=== PATIENT | male | born 1960 | race Hispanic/Latino ===

== ENCOUNTER 2016-10-17 10:35 | Outpatient (CLI) | payer MEDICARE ==
[2016-10-17 11:00] LABS: #Basophils 0.1 thou/uL (0.0-0.2); #Eosinphils 0.1 thou/uL (0.0-0.7); #Lymphocytes 1.3 thou/uL (1.20-3.40); #Monocytes 0.5 thou/uL (0.11-0.59); #Neutrophils 5.4 thou/uL (1.40-6.50); %Basophils 0.7 % (0.0-1.0); %Eosinophils 1.3 % (0.0-10.0); %Monocytes 7.3 % (0.0-10.0); Hematocrit 40.7 % (42.0-52.0); Mean Platelet Volume 6.1 fL (7.4-10.4); White Blood Cell (WBC) Count 7.4 thou/uL (4.8-10.8)
[2016-10-17 12:14] LABS: ALT (SGPT) 44 U/L (0-55); AST (SGOT) 25 U/L (5-34); Alkaline Phosphatase 126 U/L (40-150); Anion Gap 14 mmol/L (10-20); BUN (Urea Nitrogen) 8 mg/dL (8.4-25.7); Bilirubin, Total 0.7 mg/dL (0.2-1.2); Calc. Creatinine Clearance 0 mL/min (70-130); Calcium 8.7 mg/dL (7.8-10.44); Carbon Dioxide 26 mmol/L (22-29); Chloride 103 mmol/L (98-107); Estimated GFR-MDRD Greater than 90; Globulin 3.3 g/dL (2.4-3.5); LDL Cholesterol, Calculated 59 mg/dL; Protein, Total 7.3 g/dL (6.0-8.3)
[2016-10-17 19:16] LABS: Microalbumin Urine Less than 1.0 mg/dL (0.5-50.0)
== END 2016-10-17 10:36 | disposition home or self-care (01) ==
LOC: HPCALD 10:35
PROVIDERS: ATTEND Family Medicine
DX: I50.22 Chronic systolic (congestive) heart failure (principal); E11.9 Type 2 diabetes mellitus without complications
CPT/HCPCS: 36415; 80053; 80061; 82043; 83880; 84443; 85025

== ENCOUNTER 2020-01-07 10:36 | Emergency (ER) | payer MEDICARE | END 2020-01-07 11:18 | disposition home or self-care (01) | LOC: BURERS 10:36 | DX: S00.512A Abrasion of oral cavity, initial encounter (principal); E11.9 Type 2 diabetes mellitus without complications; E78.5 Hyperlipidemia, unspecified; E78.00 Pure hypercholesterolemia, unspecified; G20 Parkinson's disease; X58.XXXA Exposure to other specified factors, initial encounter | CPT/HCPCS: 99282 ==